=== PATIENT | male | born 1955 | race Caucasian/White ===

== ENCOUNTER 2017-05-05 09:46 | Inpatient (IN) ==
[2017-05-05] MEDS ORDERED: Acetaminophen IV 1,000 MG/100 ML INFUS..BTL IVPB ONE (10:04)
[2017-05-05] MEDS ORDERED: Famotidine 20 MG/2 ML VIAL IVP ONE (10:04)
[2017-05-05] MEDS ORDERED: Albuterol 2.5 MG/3 ML NEBULIZER IH ONE (10:14)
[2017-05-05] MEDS ORDERED: CeFAZolin Syr 2,000MG/20 ML 2,000 MG/20 ML SYRINGE IVPB ONE (10:14)
[2017-05-05] MEDS ORDERED: Ringers Solution, Lactated 1,000 ML IVC SCH (10:15)
--- NOTE | 2017-05-05 10:25 | Anesthesia Evaluation PreOp ---
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 Any Significant HX Other Medical History: Denies Any Significant HX Anesthesia History: No Prior Anesthetic Complications Alcohol Use: none, occasionally Drug use: none Medications and Allergies Aspirin Enteric Coated [Aspirin EC] 81 mg PO DAILY 03/11/17 [History] Bicalutamide [Casodex] 50 mg PO DAILY 03/11/17 [History] Gabapentin [Neurontin] 2 tab PO HS #60 capsule 03/11/17 [Rx] Leuprolide Acetate [Lupron Depot] 22.5 mg IM [id number] 03/11/17 [History] Tamsulosin HCl [Flomax] 0.4 mg PO DAILY 03/11/17 [History] Tramadol HCl [Ultram] 50 mg PO QID PRN 03/11/17 [History] 3 Allergy/AdvReac Type Severity Reaction Status Date / Time No Known Allergies Allergy Verified 04/01/17 13:16 - Meds/Allergy Pre-op Review Medications Reviewed: Yes Allergies Reviewed: Yes Beta Blockers on Current Med List: No Anesthesia Results - Labs Laboratory Tests 04/21/17 04/21/17 08:47 08:47 Hgb 14.6 Hct 45.4 Plt Count 230 Sodium 141 Potassium 4.3 BUN 14 Creatinine 1.24 - Imaging EKG: report reviewed (SR) Anesthesia Exam O2 Sat Height 1.83 m Height 1.83 m Height 1.83 m Weight 91.172 kg Weight 91.172 kg Weight 91.172 kg O2 Sat by Pulse Oximetry 94 Vital Signs Temp Pulse Resp BP Pulse Ox 97.6 F 72 18 122/87 94 05/05/17 10:08 05/05/17 10:08 05/05/17 10:08 05/05/17 10:08 05/05/17 10:08 Height: 6'0 Weight: 200 lbs NPO (# of Hours): MN Pain Scale: 0 - HEENT Pupil (Motor): Pupils equal, EOMI Mallampati: II Teeth: Normal Oral Opening: Greater than 3 - CONCRETE BATCHING PLANT OPERATOR LOC: Oriented CONCRETE BATCHING PLANT OPERATOR Motor: Normal RUE, Normal LUE, Normal RLE, Normal LLE, Normal Face [employer]CRETE BATCHING PLANT OPERATOR Sensory: Normal: RUE, LUE, RLE, LLE, Face - Cardiac Rhythm: Regular Murmur: None JVD: No Carotid Bruit: No - Pulmonary Breath Sounds: bilateral Clear Respiratory Effort: Symmetrical Anesthesia Assess/Plan ASA Score: 3 (PVD) Modified [place] Scale for Level of Consciousness: Cooperative, oriented, and tranquil Anesthetic Plan: General Monitoring Plan: Standard Monitors, A-Line Recovery Plan: PACU (Discussed [place], [place], agrees to proceed)
[2017-05-05] MEDS ORDERED: *HR* FentaNYL (PF) 100 MCG/2 ML VIAL ONE (10:31)
[2017-05-05] MEDS ORDERED: *HR* Midazolam HCl 2 MG/2 ML VIAL ONE (10:31)
[2017-05-05] MEDS ORDERED: Ondansetron 4 MG/2 ML VIAL ONE (10:31)
[2017-05-05] MEDS ORDERED: Lidocaine -MPF 2% 2 ML VIAL ONE ×3 (10:31→15:04)
[2017-05-05] MEDS ORDERED: Dexamethasone 4 MG/ML VIAL ONE (10:31)
[2017-05-05] MEDS ORDERED: Lidocaine -MPF 4% 5 ML AMPUL ONE (10:31)
[2017-05-05] MEDS ORDERED: *HR* Propofol 200 MG/20 ML VIAL IVP ONE (10:32)
[2017-05-05] MEDS ORDERED: Vancomycin 1,000 MG, Sodium Chloride IRRigation 1,000 ML IR ONE (11:20)
--- NOTE | 2017-05-05 11:40 | History & Physical Report ---
Date of Encounter: 05/05/17 Time of Encounter: 11:30 24 Hour HP Update - Instructions Instructions: If the History and Physical is less than 30 days old and was completed prior to A.M. admission and or procedure and has NOT been updated on calendar day of procedure please complete this update prior to performing procedure. - Update Patient reports changes in Medical Condition: No Changes in examination, assessment, or condition: No Changes in Medication: No Preop tests/diagnostics Reviewed: Yes Surgery Remains Indicated: Yes Consent for Planned Operative Procedure(s) Verified: Yes - Pre-Operative Checklist Preoperative Checklist Indicated: Yes Prophylactic Antibiotic Ordered: Yes (vancomycin due to MRSA risk) Home Medications Include Beta Pete: No Beta Pete Taken Today (Day of Surgery): No Beta Pete Taken Yesterday (Day Prior to Surgery): No Is VTE Prophylaxis Indicated?: Yes
[2017-05-05] MEDS ORDERED: Heparin 1,000 UNITS/500 mL 1,500 ML ONE (11:47)
[2017-05-05] MEDS ORDERED: Heparin 1,000 UNITS/500 mL 500 ML ONE (11:52)
[2017-05-05] MEDS ORDERED: *HR* Phenylephrine 10 MG/ML VIAL ONE (11:53)
[2017-05-05] MEDS ORDERED: EPHEDrine 50 MG/ML VIAL ONE (13:01)
[2017-05-05] MEDS ORDERED: *HR* Promethazine 25 MG/ML VIAL IVP PRN (13:47)
[2017-05-05] MEDS ORDERED: Ondansetron 4 MG/2 ML VIAL IVP ONE (13:47)
[2017-05-05] MEDS ORDERED: *HR* OxyCODONE Immed Rel 5 MG TABLET PO PRN (13:47)
[2017-05-05] MEDS ORDERED: *HR* FentaNYL (PF) 100 MCG/2 ML VIAL IVP PRN (13:47)
[2017-05-05] MEDS ORDERED: *HR* Labetalol 20 MG/4 ML SYRINGE IVP PRN ×2 (13:47→17:38)
--- NOTE | 2017-05-05 13:51 | Anesthesia Procedures ---
Date of Encounter: 05/05/17 Time of Encounter: 12:30 Procedures: Anesthesia - Arterial Line Consent obtained: written consent Time out performed: Yes Sedation: Versed (mg): 2 Sedation: Fentanyl (mcg): 100 Supplemental Oxygen via Nasal Cannula (L/min): 4 Local Anesthetic: Lidocaine 1% Amount of Anesthetic used (mls): 1 Size (Gauge): 20 Length (inches): 1 3/4 Technique Used: sterile prep, guide wire technique Post-Procedure: line taped into place Patient tolerated procedure: well Complications: none Site: Radial R
[2017-05-05] MEDS ORDERED: *HR* Heparin 5,000 UNIT/ML VIAL ONE (14:09)
--- NOTE | 2017-05-05 15:57 | Operative Note ---
Date of procedure: 05/05/17 Pre-op diagnosis: Right Femoral artery aneurysm, Peripheral vascular disease with rest pain. Post-op diagnosis: same Procedure: 1. Open repair of right common femoral artery aneurysm. 2. Right femoral to popliteal artery bypass with 6mm Distafflo minicuff PTFE graft. 3. Right popliteal artery endarterectomy. Complications: None Anesthesia: GETA Surgeon: Alonso Bowman Was there an orthodontic technician assistant present: Yes Osteopathic Medicine Teacher: Heladio Quintanilla Estimated blood loss (cc): 50 Specimen: Right lower extremity aneurysm, thrombus and plaque Condition: stable Disposition: PACU Procedure in Detail: Indications: The patient is a 62 year old male with a history of peripheral vascular disease and tobacco abuse. He presented with severe disabling claudication and was found to have severe peripheral vascular disease. Revascularization was recommended to decrease his symptoms and reduce his risk of limb loss. He was found to have a large, partially thrombosed right common femoral artery aneurysm. Resection was recommended to reduce risk of rupture or complete thrombosis with embolization. Procedure: The patient was identified in the preoperative area. The risks, benefits, and alternatives of the procedure were discussed. All questions were answered. The patient was taken to the operating room and placed in supine position on the operating room table. After the induction of general endotracheal anesthesia, he was cleaned and draped in normal sterile fashion. An oblique incision was made over the right groin sharply. Hemostasis was obtained with electrocautery. Through a process of blunt, sharp, and electrocautery dissection, the right femoral vessels identified. A large saccular common femoral artery aneurysm was encountered. There was no evidence of rupture. Careful dissection around the aneurysm was performed. Proximal control was obtained by placing a vessel loop around the distal external iliac artery. Distally the deep and superficial femoral arteries were dissected circumferentially and surrounded with vessel loops. An incision was then made on the right medial distal thigh sharply. Hemostasis was obtained with electrocautery. Through a process of blunt, sharp, and electrocautery dissection, the right above-knee popliteal artery was dissected proximally and distally and surrounded with vessel loops. A graft was tunneled between the popliteal and femoral incisions. The patient received 5000 units of heparin intravenously. The popliteal vessels were occluded and a longitudinal arteriotomy was made in the popliteal artery. The arteriotomy was extended with Pott's scissors. The vessel was noted to contain calcified and irregular partially occlusive plaque. Using a dental freer a below knee popliteal endarterctomy was performed. The endpoints were inspected and no elevated flaps were noted. The distal end of the graft was sutured in place with a running 6-0 Prolene, but not tied. Heparinized saline was infused into the lumen. Tension was applied to the external iliac and femoral vessel loops. An arteriotomy was made in the common femoral artery aneurysm. The arteriotomy was extended with Pott's scissors. Using a dental freer, thrombus and plaque were removed from the lumen and sent to pathology. The arterial wall was inspected and the aneurysmal portion of the common femoral artery was identified. The margins of the aneurysm were easily ideifiable. The aneurysm wall was resected sharply until grossly normal arterial wall was identified. The proximal end of the bypass graft was cut to fit the the long arterial wall defect. The graft was anastamosed with a running 6-0 Prolene. The vessels were flushed through the graft and heparin was infused into the lumen. The graft was clamped with an atraumatic clamp. Thrombis and gelfoam were used at the proximal anastamosis. The distal arterial anastomosis was completed and prior to completing the closure, the popliteal vessels were flushed and reoccluded. Heparinized saline was infused into the lumen. The anastamosis was tied and then flow was restored. Polyphasic signals were noted distal to the distal anastomosis as well as at the posterior tibial artery. Wounds were irrigated with antibiotic-containing saline. Thrombin and gelfoam were used to aid in hemostasis. Platelet rich and platelet poor plasma were infused into the wounds. Meticulous hemostasis was obtained throughout the wound with electrocautery. Wounds were reapproximated with layers of 2-0 and 3-0 Vicryl. Skin was reapproximated with 3-0 Monocryl. Sterile dressing was applied. The patient was extubated and taken to recovery room in stable condition.
[2017-05-05] MEDS: MORPHINE SUL Oral CONC 10 MG/0.5 ML ORAL.SYG SL PRN ×2 (16:13→16:23)
--- NOTE | 2017-05-05 16:24 | Operative Note ---
Date of procedure: 05/05/17 Pre-op diagnosis: PAD/claudication/right femoral aneurysm Post-op diagnosis: same Procedure: Open repair of right common femoral artery aneurysm with direct resection Right femoral to above-knee popliteal artery bypass graft using 6 mm PTFE Distaflo Right above the knee and at the knee popliteal artery endarterectomy Complications: None Anesthesia: PHILOMENA Surgeon: Alonso Bowman Co-Surgeon: Heladio Quintanilla Was there an special education educational assistant present: No Estimated blood loss (cc): 50 Specimen: Right common femoral artery aneurysm and right popliteal artery endarterect Condition: stable Disposition: PACU Procedure in Detail: History Girma Ryder is a 62-year-old white male with known severe bilateral lower extremity occlusive disease. The patient has claudication. In addition the patient was identified as having a right common femoral artery aneurysm. Angiographically the aneurysm appears to be saccular. The patient now comes for surgery for the right lower extremity. The patient has significant occlusive disease on the left lower extremity as well. Procedure After informed consent was obtained the patient was taken to the operating room. General endotracheal anesthesia was established. The right lower extremity was sterilely prepped and draped. A timeout protocol was observed. A 2 team surgical approach was utilized for this procedure. This was performed because of ongoing significant comorbidities and also to decrease anesthetic time and decrease blood loss. Dissection was made of the common femoral artery and the [id number] popliteal artery simultaneously. The aneurysm was identified in the common femoral artery as depicted on the angiogram. Dissection was made of this vessel with extensive control both proximally and distally. At the popliteal artery the vessel in the standard [id number] location demonstrated significant plaque. Therefore the dissection was carried more distally such that the anastomosis with X Ronnie performed behind the patella. A subsartorial tunnel was created. A 6 mm PTFE graft was selected and this was passed through the tunnel. Heparin was then administered a dose of 5000 units intravenously. The popliteal artery was opened first at the [id number] with extension into the abdomen knee popliteal artery. Significant atherosclerotic plaque and chronic thrombus was identified. Because of this a formal endarterectomy was necessary. This was performed with the [place] elevator. Dissection was made of the vessel circumferentially so that the plaque could be removed. Then distally the plaque was dissected. Tonsil clamp was then inserted and the plaque was grasped and removed. Excellent backbleeding was achieved. This area was then flushed with heparinized saline. At the same time the common femoral artery was opened. The common femoral artery was then resected. There is a significant amount of intra luminal thrombus present. The anastomosis was initiated at the popliteal level first using the Distaflo graft in an end-to-side configuration. 6-0 Prolene suture was used for this anastomosis. Then the anastomosis was created at the femoral location. A long anastomosis was made so that it could accommodate the area of the resection of the femoral aneurysm with the back wall of the artery preserved. A long patch type anastomosis was then created. After appropriate backbleeding and flushing the graft was opened. Pulsatile flow was restored into the popliteal artery. Doppler signal was identified at the posterior tibial and peroneal artery at the level of the ankle. The wounds were then irrigated with antibiotic-containing solution. Hemostasis was achieved. The wounds were then closed in layers using absorbable suture. Dry sterile dressings were applied to the incisions. The patient was extubated in the operating room and taken to the recovery room in stable condition.
--- NOTE | 2017-05-05 17:00 | Anesthesia Evaluation Post Op ---
Date of Encounter: 05/05/17 Time of Encounter: 16:59 - Vital Signs Vital Signs: Last Vital Signs Temp 97.2 F L 05/05/17 16:35 Pulse 77 05/05/17 16:35 Resp 16 05/05/17 16:35 BP 123/79 05/05/17 16:35 Pulse Ox 98 05/05/17 16:35 - Lungs Lungs: Clear Ascult./Percussion - Airway Airway: Non-obstructed - Cardiovascular Regular Rate - Mental Status Mental Status: Alert & Oriented, Answers Appropriately - Pain Pain Scale: 3 - Nausea Vomiting Nausea Vomiting: Not Present - Hydration Hydration: NPO - Discharge PostOp Status: Transfer Patient to floor
[2017-05-05] MEDS: Ketorolac 15 MG/ML VIAL IVP SCH (17:20)
[2017-05-05] MEDS ORDERED: Ondansetron 4 MG/2 ML VIAL IVP PRN (17:38)
[2017-05-05] MEDS ORDERED: LEUPROLIDE ACETATE 22.5 MG IM SCH (17:38)
[2017-05-05] MEDS ORDERED: *HR* HYDROcodone/Acet 5/325 mg TABLET PO PRN (17:38)
[2017-05-05] MEDS ORDERED: Acetaminophen 325 MG TABLET PO PRN (17:38)
[2017-05-05] MEDS ORDERED: OXYCODONE Oral CONC 10 MG/0.5 ML ORAL.SYG SL PRN ×2 (17:38)
[2017-05-05] MEDS ORDERED: 0.9 % Sodium Chloride 1,000 ML IVC SCH (17:38)
[2017-05-05] MEDS ORDERED: Naloxone 0.4 MG/ML INJ IVP PRN (17:38)
[2017-05-05] MEDS ORDERED: Gabapentin 300 MG CAPSULE PO SCH (21:00)
[2017-05-05] MEDS: CeFAZolin Premix DUPLEX 2,000 MG/50 ML BAG IVPB SCH (21:16)
[2017-05-05] MEDS: *HR* OxyCODONE Immed Rel 5 MG TABLET PO PRN (21:17)
[2017-05-05] MEDS ORDERED: Vancomycin 0 MG in D5% in Water 250 ML IVPB ONE (23:30)
[2017-05-06] MEDS: *HR* Metoprolol 5 MG/5 ML VIAL IVP SCH ×3 (01:22→06:02)
[2017-05-06] MEDS: Ketorolac 15 MG/ML VIAL IVP SCH ×2 (01:23→06:03)
[2017-05-06] MEDS: CeFAZolin Premix DUPLEX 2,000 MG/50 ML BAG IVPB SCH (04:24)
[2017-05-06] MEDS: *HR* OxyCODONE Immed Rel 5 MG TABLET PO PRN (04:24)
[2017-05-06 04:45] LABS: Basophils % 0.1 %; Hemoglobin 12.5 g/dL (12.9-16.9); Immature Granulocytes % 0.5 % (0-4); Lymphocytes # 1.1 K/mcL (0.6-4.6); Lymphocytes % 7.5 %; Mean Corpuscular HGB Conc 32.9 g/dL (31.6-35.5); Mean Corpuscular Hemoglobin 31.8 pg (28.0-33.3); Mean Corpuscular Volume 96.7 fL (83.0-100.0); Mean Platelet Volume 9.8 fL (9.4-12.4); Monocytes # 0.6 K/mcL (0.0-1.3); Neutrophils # 13.3 K/mcL (1.6-8.9); Platelet Count 220 K/mcL (140-400); Red Blood Count 3.93 M/mcL (4.19-5.50); Red Cell Distribution Width 12.2 % (11.5-14.5); Segmented Neutrophils % 87.9 %
[2017-05-06 05:07] LABS: BUN/Creatinine Ratio 13 (6-26); Blood Urea Nitrogen 15 mg/dL (8-23); Calcium 9.3 mg/dL (8.6-10.3); Carbon Dioxide 23 mEq/L (23-29); Chloride 104 mEq/L (98-107); Glucose 136 mg/dL (70-105); Osmolality,Calculated 277 (280-300); Potassium 4.5 mEq/L (3.5-5.1); Sodium 132 mEq/L (136-145); eGFR For African Americans > 60 (> 60); eGFR For Non-African Americans > 60 (> 60)
[2017-05-06] MEDS ORDERED: *HR* Heparin 5,000 UNIT/ML VIAL SQ SCH ×2 (06:00)
--- NOTE | 2017-05-06 06:53 | Discharge Summary ---
Orders not resulted at time of discharge: Pending orders 05/04/17 08:35 Red Blood Cells [BBK] Routine 05/05/17 15:44 Surgical Pathology [PTH] Routine Date of Encounter: 05/06/17 Time of Encounter: 07:35 - Discharge Diagnosis (1) Atherosclerosis of [place] arteries of extremities with intermittent claudication, bilateral legs Priority: Primary Status: Chronic Comments: The patient has undergone a right femoral to popliteal artery bypass. He is healing well. He reports that his right lower extremity feels much better. (2) Femoral artery aneurysm, right Priority: Secondary Status: Chronic Comments: The patient has undergone a right common femoral artery aneurysm repair. (3) Acute blood loss anemia Priority: Secondary Status: Acute Comments: The patient has acute expected postoperative blood loss anemia. (4) Tobacco abuse Priority: Secondary Status: Chronic - Hospital Course Hospital course: Mr. Ryder is a 62 year old male who was admitted on 05/05/17. He underwent a repair of his right common femoral artery aneurysm. He also underwent a right femoral to popliteal artery bypass. He tolerated the procedures well and was discharged on postoperative day #1 without complications. Time spent discussing smoking cessation with patient: 3 to 10 minutes - Time Spent with Patient Total time spent providing and/or coordinating discharge services: - Discharge Medications Prescriptions: OxyCODONE/APAP 5/325 [Percocet 5/325 MG] 1 each PO Q6HR PRN 7 Days #24 tablet PRN Reason: postoperative pain Home Medications: Aspirin Enteric Coated [Aspirin EC] 81 mg PO DAILY 03/11/17 [History] Bicalutamide [Casodex] 50 mg PO DAILY 03/11/17 [History] Gabapentin [Neurontin] 2 tab PO HS #60 capsule 03/11/17 [Rx] Leuprolide Acetate [Lupron Depot] 22.5 mg IM [id number] 03/11/17 [History] Tamsulosin HCl [Flomax] 0.4 mg PO DAILY 03/11/17 [History] Tramadol HCl [Ultram] 50 mg PO QID PRN 03/11/17 [History] OxyCODONE/APAP 5/325 [Percocet 5/325 MG] 1 each PO Q6HR PRN 7 Days #24 tablet [Rx] Allergies/Adverse Reactions: 3 Allergy/AdvReac Type Severity Reaction Status Date / Time No Known Allergies Allergy Verified 04/01/17 13:16 Date of admission: 05/05/17 16:57 Primary care physician: June Brown, Procedure(s) Performed: 1. Repair of right common femoral artery aneurysm. 2. Right femoral to above knee popliteal artery bypass with 6mm Distaflo PTFE mini-cuff graft. Discharging clinician: Alonso Magallon Anticipated date of discharge: 05/06/17 Exam Vital Signs, Last 4 Hours Temp Pulse Resp BP Pulse Ox 05/06/17 03:32 98.0 F 79 16 101/63 97 General: Present: No Apparent Distress Cardiac: Present: Reg Rate and Rhythm Lungs: Present: Normal Breath Sounds Neuro: Present: Alert and responsive, No focal deficits noted, Motor nerves grossly intact, Sensory nerves grossly intact Abdomen: Present: Soft Vascular: Present: Normal capillary refill, Pulse, diminished (left lower extremity), Pulse, normal (right lower extremity), Surgical incisions (no hematoma, incisions clean, dry and intact without erythema or draiange). Absent : Cyanosis, Edema Skin: Present: No rashes noted on visualized skin - Patient Status Disposition: Home, Self-Care Condition: Good Functional capacity at discharge: independent ambulation Overall status at discharge: patient is back to baseline - Discharge Instructions Instructions: Peripheral Vascular Disorders (DC) Follow Up With: Alonso Magallon MD [Partnered Physician] - 05/24/17 3:40 pm June Brown MD [Primary Care Provider] - 05/17/17 11:00 am Additional Instructions: MAY REMOVE BANDAGES AND SHOWER ON 05/07/17. NO TUB BATHS OR SWIMMING UNTIL 05/31/17. WASH WOUNDS GENTLY AND PAT TO DRY. APPLY DRY GAUZE TO GROIN WOUND DAILY FOR [address] MAGALLON AT [phone] WITH QUESTIONS OR CONCERNS. - Diet and Activity Activity: increase activity as tolerated Diet: advance to your usual diet - VTE Documentation of Mechanical Device: Intermittent pneumatic compression device
[2017-05-06 07:51] VITALS: BP 113/86
[2017-05-06] MEDS ORDERED: Aspirin Enteric Coated 81 MG Tablet PO SCH (09:00)
[2017-05-06] MEDS ORDERED: Bicalutamide 50 MG TABLET PO SCH (09:00)
== END 2017-05-06 09:45 | disposition home or self-care (01) | DRG 253 ==
LOC: SAMDAY 09:46 → 2NNU 16:57
PROVIDERS: ADMIT Surgery; ATTEND Surgery

== ENCOUNTER 2017-07-28 09:17 | Inpatient (IN) ==
[~2017-07-28 09:17] MED LIST: Vancomycin 1,000 MG, Sodium Chloride IRRigation 1,000 ML IR ONE
[2017-07-28] MEDS ORDERED: CeFAZolin Syr 2,000MG/20 ML 2,000 MG/20 ML SYRINGE IVPB ONE (09:39)
[2017-07-28] MEDS ORDERED: Albuterol 2.5 MG/3 ML NEBULIZER IH ONE (09:39)
[2017-07-28] MEDS ORDERED: Ringers Solution, Lactated 1,000 ML IVC SCH (09:45)
--- NOTE | 2017-07-28 11:15 | Anesthesia Evaluation PreOp ---
Date of Encounter: 07/28/17 Time of Encounter: 11:13 - Past History Planned Operation: Left femoral endarterectomy Cardiac History: HTN, Hyperlipidemia, Other (ascending thoracic aneurysm - being followed, peripheral vascular disease) Pulmonary History: Smoker, EDITH Dx (cannot tolerate CPAP) COMMERCIAL AGENT History: Other (hx back surgery) Other Medical History: Other (stage 4 prostate cancer undergoing treatment now ( Per oncologist: He had excellent response to Lupron 22.5 mg IM injection every 12 weeks. Today he will get a dose today on 07/01/2017 Also bicalutamide 50 mg by mouth once a day)) Anesthesia History: No Prior Anesthetic Complications Alcohol Use: none, occasionally Drug use: none Medications and Allergies Aspirin Enteric Coated [Aspirin EC] 81 mg PO DAILY 03/11/17 [History] Leuprolide Acetate [Lupron Depot] 22.5 mg IM [id number] 03/11/17 [History] Tramadol HCl [Ultram] 50 mg PO QID PRN 03/11/17 [History] Bicalutamide [Casodex] 50 mg PO HS 07/28/17 [History] Gabapentin [Neurontin] 300 mg PO HS 07/28/17 [History] Tamsulosin HCl [Flomax] 0.4 mg PO HS 07/28/17 [History] 3 Allergy/AdvReac Type Severity Reaction Status Date / Time No Known Allergies Allergy Verified 07/28/17 09:38 - Meds/Allergy Pre-op Review Medications Reviewed: Yes Allergies Reviewed: Yes Beta Blockers on Current Med List: No Anesthesia Results - Labs Laboratory Tests 06/27/17 06/27/17 06/27/17 07:30 07:30 09:16 WBC 8.1 Hgb 14.3 Hct 43.6 Plt Count 245 Sodium 137 Potassium 4.7 Chloride 102 Carbon Dioxide 27 BUN 12 Creatinine 1.14 POC Creatinine 1.20 POC Estimated GFR (eGFR) > 60 Est GFR ( Amer) > 60 Est GFR (Non-Af Amer) > 60 BUN/Creatinine Ratio 11 Glucose 80 Calculated Osmolality 283 Calcium 9.7 - Imaging EKG: report reviewed, image reviewed (SINUS RHYTHM) Anesthesia Exam Last Vital Signs Temp 97.8 F 07/28/17 10:14 Pulse 66 07/28/17 10:14 Resp 18 07/28/17 10:14 BP 127/90 07/28/17 10:14 Pulse Ox 98 07/28/17 10:14 Weight: 89 kg NPO (# of Hours): > 8 hrs - HEENT Pupil (Motor): Pupils equal, EOMI Mallampati: III Teeth: Edentulous Denture Type: Upper: Complete, Lower: Complete Oral Opening: Greater than 3 - COMMERCIAL AGENT LOC: Oriented - Cardiac Rhythm: Regular Murmur: None - Pulmonary Breath Sounds: bilateral Clear Respiratory Effort: Symmetrical Anesthesia Assess/Plan ASA Score: 3 (Active cancer (stage 4 prostate cancer), PVD, EDITH, smoking) Modified [place] Scale for Level of Consciousness: Cooperative, oriented, and tranquil Anesthetic Plan: General Monitoring Plan: Standard Monitors, A-Line (+/-) Recovery Plan: PACU
[2017-07-28] MEDS ORDERED: Heparin 1,000 UNITS/500 mL 1,000 ML ONE (11:20)
--- NOTE | 2017-07-28 11:23 | History & Physical Report ---
Date of Encounter: 07/28/17 Time of Encounter: 11:00 24 Hour HP Update - Instructions Instructions: If the History and Physical is less than 30 days old and was completed prior to A.M. admission and or procedure and has NOT been updated on calendar day of procedure please complete this update prior to performing procedure. - Update Patient reports changes in Medical Condition: No Changes in examination, assessment, or condition: No Changes in Medication: No Preop tests/diagnostics Reviewed: Yes Surgery Remains Indicated: Yes Consent for Planned Operative Procedure(s) Verified: Yes - Pre-Operative Checklist Preoperative Checklist Indicated: Yes Prophylactic Antibiotic Ordered: Yes (Vancomycin due to MRSA risk) Home Medications Include Beta Pete: No Beta Pete Taken Today (Day of Surgery): No Beta Pete Taken Yesterday (Day Prior to Surgery): No Is VTE Prophylaxis Indicated?: Yes
[2017-07-28] MEDS ORDERED: *HR* FentaNYL (PF) 100 MCG/2 ML VIAL ONE ×2 (11:33→13:27)
[2017-07-28] MEDS ORDERED: *HR* Propofol 200 MG/20 ML VIAL IVP ONE (11:33)
[2017-07-28] MEDS ORDERED: *HR* Heparin 5,000 UNIT/ML VIAL ONE (11:34)
[2017-07-28] MEDS ORDERED: *HR* Rocuronium Bromide 50 MG/5 ML VIAL ONE (11:35)
[2017-07-28] MEDS ORDERED: Lidocaine -MPF 2% 2 ML VIAL ONE (11:35)
[2017-07-28] MEDS ORDERED: Dexamethasone 4 MG/ML VIAL ONE (11:36)
[2017-07-28] MEDS ORDERED: Ondansetron 4 MG/2 ML VIAL ONE (13:34)
[2017-07-28] MEDS ORDERED: Bupivacaine-MPF 0.25% 10 ML VIAL ONE (13:57)
--- NOTE | 2017-07-28 14:39 | Operative Note ---
Date of procedure: 07/28/17 Pre-op diagnosis: Peripheral vascular disease Post-op diagnosis: same Procedure: 1. Left iliofemoral endarterectomy with bovine pericardial patch angioplasty. 2. Left deep femoral endarterectomy Complications: None Anesthesia: GETA Surgeon: Alonso Bowman Was there an phys assistant present: No Estimated blood loss (cc): 50 Specimen: Left lower extremity thrombus and plaque Condition: stable Disposition: PACU Procedure in Detail: Indications: The patient is a 62-year-old male with a long-standing history of peripheral vascular disease with disabling claudication. Patient underwent angiography which revealed significant left distal iliac common femoral and deep femoral artery stenosis. The patient was also noted to have a left superficial femoral, popliteal and tibial peroneal trunk occlusion. Revascularization was recommended for symptomatic relief. Procedure: The patient was identified in the preoperative area. The risks, benefits, and alternatives of procedure were discussed and all questions were answered. He was taken to the operating room and placed in supine position on the operating room table. After the induction of general endotracheal anesthesia, he was cleaned and draped in normal sterile fashion. An oblique incision was made along the left groin sharply. Hemostasis was obtained with electrocautery. Through a process of blunt and sharp electrocautery dissection , the skin and subcutaneous tissues were incised and the distal external iliac artery was dissected underneath the inguinal ligament and a vessel loop was passed around it. The common femoral artery, deep femoral artery and superficial femoral artery were dissected circumferentially and surrounded with vessel loops. The vessels were noted to be firm and heaviliy calcified. The patient received 5000 units of heparin intravenously. After waiting adequate time for the heparin to circulate, vessels were occluded. A longitudinal arteriotomy was made sharply into the common femoral artery. The arteriotomy was extended proximally and distally. Using a dental freer, an endarterectomy was performed from the distal external iliac artery through the common femoral artery. The plaque was irregular, heavily calcified and had significant coexisting chronic thrombus. Proximally, the lumen became patent without significant stenosis. The plaque was excised sharply and no elevated flaps were noted at the endpoint. Significant residual stenosis was noted extending from the origin of the deep femoral artery into his first branch. Upon release of the vessel loop no significant retrograde flow was noted. Using a dental freer, the plaque was circumferentially excised from the deep femoral artery using an eversion technique. Release of the loop revealed significant retrograde flow. The loop was tightened. The lumen was irrigated with heparinzed saline. A bovine pericardial patch was cut to fit the arteriotomy defect. The patch was sutured in place with running 6-0 Prolene. Prior to completing the patch anastomosis, each vessel was flushed individually, then reoccluded. Heparinized saline was infused into the lumen. The patch was completed and flow was restored. Thrombin and Gelfoam were used to aid in hemostasis. Polyphasic signal was noted distal to the distal end of the patch as well as the posterior tibial artery. Wound was irrigated with antibiotic-containing saline. Platelet-rich and platelet-poor plasma were infused into the wound. The wounds were reapproximated with layer of 2-0 Vicryl followed by two layers of 3-0 and Vicryl 3-0 Monocryl in the subcuticular layer. Sterile dressings were applied. The patient was extubated and taken to recovery room in stable condition.
--- NOTE | 2017-07-28 14:46 | Anesthesia Evaluation Post Op ---
Date of Encounter: 07/28/17 Time of Encounter: 14:45 - Vital Signs Vital Signs: Last Vital Signs Temp 97.9 F 07/28/17 14:45 Pulse 63 07/28/17 14:45 Resp 16 07/28/17 14:45 BP 128/90 07/28/17 14:45 Pulse Ox 99 07/28/17 14:45 - Lungs Lungs: Clear Ascult./Percussion - Airway Airway: Non-obstructed - Cardiovascular Regular Rate - Mental Status Mental Status: Alert & Oriented, Answers Appropriately - Pain Pain Scale: 2 - Nausea Vomiting Nausea Vomiting: Not Present - Hydration Hydration: Ice chips - Discharge PostOp Status: Transfer Patient to floor
[2017-07-28] MEDS ORDERED: *HR* Labetalol 20 MG/4 ML SYRINGE IVP PRN (15:17)
[2017-07-28] MEDS ORDERED: *HR* HYDROcodone/Acet 5/325 mg TABLET PO PRN (15:17)
[2017-07-28] MEDS ORDERED: Naloxone 0.4 MG/ML INJ IVP PRN (15:17)
[2017-07-28] MEDS ORDERED: Ondansetron 4 MG/2 ML VIAL IVP PRN (15:17)
[2017-07-28] MEDS ORDERED: Acetaminophen 325 MG TABLET PO PRN (15:17)
[2017-07-28] MEDS ORDERED: *HR* OxyCODONE Immed Rel 5 MG TABLET PO PRN (15:17)
[2017-07-28] MEDS: *HR* Metoprolol 5 MG/5 ML VIAL IVP SCH (17:36)
[2017-07-28] MEDS: ceFAZolin 2,000 MG in 0.9 % Sodium Chloride 100 ML IVPB SCH (20:02)
[2017-07-28] MEDS ORDERED: Bicalutamide 50 MG TABLET PO SCH (21:00)
[2017-07-28] MEDS ORDERED: Gabapentin 300 MG CAPSULE PO SCH (21:00)
[2017-07-29] MEDS: *HR* Metoprolol 5 MG/5 ML VIAL IVP SCH ×2 (02:49→04:49)
[2017-07-29] MEDS: ceFAZolin 2,000 MG in 0.9 % Sodium Chloride 100 ML IVPB SCH (03:45)
[2017-07-29] MEDS ORDERED: *HR* Heparin 5,000 UNIT/ML VIAL SQ SCH (06:00)
[2017-07-29 06:42] LABS: Basophils % 0.1 %; Hematocrit 39.5 % (37.5-50.1); Hemoglobin 12.8 g/dL (12.9-16.9); Immature Granulocytes % 0.6 % (0-4); Lymphocytes # 0.9 K/mcL (0.6-4.6); Lymphocytes % 5.4 %; Mean Corpuscular HGB Conc 32.4 g/dL (31.6-35.5); Mean Corpuscular Hemoglobin 31.8 pg (28.0-33.3); Mean Platelet Volume 10.1 fL (9.4-12.4); Monocytes # 0.7 K/mcL (0.0-1.3); Neutrophils # 15.6 K/mcL (1.6-8.9); Platelet Count 185 K/mcL (140-400); Red Blood Count 4.03 M/mcL (4.19-5.50); Segmented Neutrophils % 89.9 %
[2017-07-29 06:54] LABS: BUN/Creatinine Ratio 13 (6-26); Blood Urea Nitrogen 15 mg/dL (8-23); Carbon Dioxide 25 mEq/L (23-29); Chloride 106 mEq/L (98-107); Glucose 134 mg/dL (70-105); Osmolality,Calculated 285 (280-300); Potassium 4.4 mEq/L (3.5-5.1); Sodium 136 mEq/L (136-145); eGFR For African Americans > 60 (> 60); eGFR For Non-African Americans > 60 (> 60)
--- NOTE | 2017-07-29 07:11 | Discharge Summary ---
Orders not resulted at time of discharge: Pending orders 07/27/17 08:36 Red Blood Cells [BBK] Routine 07/28/17 14:17 Surgical Pathology [PTH] Routine Date of Encounter: 07/29/17 Time of Encounter: 07:45 - Discharge Diagnosis (1) Atherosclerosis of [place] arteries of extremities with intermittent claudication, bilateral legs Status: Chronic (2) Tobacco abuse Status: Chronic (3) Prostate cancer Status: Acute - Hospital Course Hospital course: Mr. Ryder is a 62 year old male - Time Spent with Patient Total time spent providing and/or coordinating discharge services: - Discharge Medications Prescriptions: OxyCODONE/APAP 5/325 [Percocet 5/325 MG] 1 each PO Q6HR PRN 5 Days #20 tablet PRN Reason: Postoperative pain Home Medications: Aspirin Enteric Coated [Aspirin EC] 81 mg PO DAILY 03/11/17 [History] Leuprolide Acetate [Lupron Depot] 22.5 mg IM [id number] 03/11/17 [History] Tramadol HCl [Ultram] 50 mg PO QID PRN 03/11/17 [History] Bicalutamide [Casodex] 50 mg PO HS 07/28/17 [History] Gabapentin [Neurontin] 300 mg PO HS 07/28/17 [History] Tamsulosin HCl [Flomax] 0.4 mg PO HS 07/28/17 [History] OxyCODONE/APAP 5/325 [Percocet 5/325 MG] 1 each PO Q6HR PRN 5 Days #20 tablet [Rx] Allergies/Adverse Reactions: 3 Allergy/AdvReac Type Severity Reaction Status Date / Time No Known Allergies Allergy Verified 07/28/17 09:38 Date of admission: 07/28/17 14:56 Primary care physician: June Brown, Exam Vital Signs, Last 4 Hours Temp Pulse Resp BP Pulse Ox 07/29/17 04:08 98.8 F 64 16 125/82 92 - Patient Status Disposition: Home, Self-Care Condition: Good Functional capacity at discharge: independent ambulation Overall status at discharge: patient is back to baseline - Discharge Instructions Follow Up With: Alonso Bowman MD [Partnered Physician] - 09/06/17 2:30 pm June Brown MD [Primary Care Provider] - 08/04/17 9:45 am Additional Instructions: May remove bandage and shower on 07/30/2017. Wash wounds gently and pat to dry. Applied dry gauze to wound daily for 7 days. No tub baths or swimming until 08/23/2017. Call Dr. Bowman at [phone] with questions or concerns. - Diet and Activity Activity: increase activity as tolerated Diet: advance to your usual diet - VTE Documentation of Mechanical Device: Intermittent pneumatic compression device
[2017-07-29 07:45] VITALS: BP 130/83
[2017-07-29] MEDS ORDERED: Aspirin Enteric Coated 81 MG Tablet PO SCH (09:00)
[2017-10-01] MEDS ORDERED: LEUPROLIDE ACETATE 22.5 MG IM SCH (09:00)
== END 2017-07-29 09:33 | disposition home or self-care (01) | DRG 271 ==
LOC: SAMDAY 09:17 → 2NNU 14:56
PROVIDERS: ADMIT Surgery; ATTEND Surgery

== ENCOUNTER 2018-09-28 06:07 | Inpatient (IN) ==
[2018-09-28] MEDS ORDERED: CeFAZolin Syr 2,000MG/20 ML 2,000 MG/20 ML SYRINGE IVPB ONE (06:26)
[2018-09-28] MEDS ORDERED: Albuterol 2.5 MG/3 ML NEBULIZER IH ONE (06:28)
[2018-09-28] MEDS ORDERED: Ringers Solution, Lactated 1,000 ML IVC SCH (06:30)
[2018-09-28] MEDS ORDERED: Lidocaine -MPF 4% 5 ML AMPUL ONE (07:03)
[2018-09-28] MEDS ORDERED: Ondansetron 4 MG/2 ML VIAL ONE (07:03)
[2018-09-28] MEDS ORDERED: Lidocaine -MPF 2% 2 ML VIAL ONE ×2 (07:03→08:16)
[2018-09-28] MEDS ORDERED: *HR* Succinylcholine 200 MG/10 ML VIAL IVP ONE (07:03)
[2018-09-28] MEDS ORDERED: Dexamethasone 4 MG/ML VIAL ONE (07:03)
[2018-09-28] MEDS ORDERED: *HR* Propofol 200 MG/20 ML VIAL IVP ONE (07:04)
[2018-09-28] MEDS ORDERED: *HR* Midazolam HCl 2 MG/2 ML VIAL ONE (07:04)
[2018-09-28] MEDS ORDERED: *HR* Phenylephrine 10 MG/ML VIAL ONE (07:04)
[2018-09-28] MEDS ORDERED: *HR* FentaNYL (PF) 100 MCG/2 ML VIAL ONE (07:04)
[2018-09-28] MEDS ORDERED: Lidocaine -MPF 1% 2 ML AMPUL ONE (07:20)
--- NOTE | 2018-09-28 07:28 | Anesthesia Evaluation PreOp ---
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 HX Other Medical History: Hepatic (HEP C, POST INTERFERON TX) Anesthesia History: No Prior Anesthetic Complications, Past Anesthesia Alcohol Use: occasionally Drug use: none Medications and Allergies Aspirin Enteric Coated [Aspirin EC] 2 tab PO DAILY 03/11/17 [History] Leuprolide Acetate [Lupron Depot] 22.5 mg IM [id number] 03/11/17 [History] Tramadol HCl [Ultram] 50 mg PO QID PRN 03/11/17 [History] Atorvastatin [Lipitor] 80 mg PO HS 09/23/17 [History] Levothyroxine Sodium [Levoxyl] 75 mcg PO DAILY 05/04/18 [History] Tamsulosin HCl [Flomax] 0.4 mg PO HS #30 cap.er.24h 07/03/18 [Rx] Bicalutamide [Casodex] 200 mg PO HS 09/28/18 [History] Cyclobenzaprine [Flexeril] 10 mg PO DAILY 09/28/18 [History] Allergy/AdvReac Type Severity Reaction Status Date / Time oxycodone AdvReac Shakiness Verified 09/28/18 06:29 - Meds/Allergy Pre-op Review Medications Reviewed: Yes Allergies Reviewed: Yes Beta Blockers on Current Med List: No Anesthesia Results - Labs REVIEWED, WNL Anesthesia Exam REVIEWED Weight: 86 KG - BMI 26 NPO (# of Hours): 8 - HEENT Mallampati: I Teeth: Edentulous Denture Type: Upper: Complete, Lower: Complete - Cardiac Rhythm: Regular - Pulmonary Breath Sounds: bilateral Clear Anesthesia Assess/Plan ASA Score: 3 Anesthetic Plan: General Monitoring Plan: Standard Monitors Recovery Plan: PACU
[2018-09-28] MEDS ORDERED: Heparin 1,000 UNITS/500 mL 1,500 ML ONE (07:30)
[2018-09-28] MEDS ORDERED: Ipratropium/Albuterol Neb 3 ML IH PRN (07:32)
[2018-09-28] MEDS ORDERED: *HR* Promethazine 25 MG/ML VIAL IVP PRN ×2 (07:33→14:55)
[2018-09-28] MEDS ORDERED: *HR* Labetalol 20 MG/4 ML SYRINGE IVP PRN ×2 (07:33→14:55)
[2018-09-28] MEDS ORDERED: Acetaminophen IV 1,000 MG/100 ML INFUS..BTL IVPB ONE (07:33)
[2018-09-28] MEDS ORDERED: Ondansetron 4 MG/2 ML VIAL IVP ONE (07:33)
[2018-09-28] MEDS ORDERED: Morphine Sulfate Oral CONC 10 MG/0.5 ML ORAL.SYG SL PRN (07:33)
[2018-09-28] MEDS ORDERED: Ketorolac 30 MG/ML VIAL IVP ONE (07:33)
[2018-09-28] MEDS ORDERED: *HR* FentaNYL (PF) 100 MCG/2 ML VIAL IVP PRN (07:33)
--- NOTE | 2018-09-28 07:33 | History & Physical Report ---
Date of Encounter: 09/28/18 Time of Encounter: 07:28 24 Hour HP Update - Instructions Instructions: If the History and Physical is less than 30 days old and was completed prior to A.M. admission and or procedure and has NOT been updated on calendar day of procedure please complete this update prior to performing procedure. - Update Patient reports changes in Medical Condition: No Changes in examination, assessment, or condition: No Changes in Medication: No Preop tests/diagnostics Reviewed: Yes Surgery Remains Indicated: Yes Consent for Planned Operative Procedure(s) Verified: Yes - Pre-Operative Checklist Preoperative Checklist Indicated: No Prophylactic Antibiotic Ordered: Yes (vancomycin due to MRSA risk) Home Medications Include Beta Pete: No Beta Pete Taken Today (Day of Surgery): No Beta Pete Taken Yesterday (Day Prior to Surgery): No Is VTE Prophylaxis Indicated?: Yes
[2018-09-28] MEDS ORDERED: Vancomycin 1,000 MG, Sodium Chloride IRRigation 1,000 ML IR ONE (07:45)
[2018-09-28] MEDS ORDERED: Calcium Gluconate 1,000 MG/10 ML VIAL ONE (08:01)
[2018-09-28] MEDS ORDERED: EPHEDrine 50 MG/ML VIAL ONE (08:32)
[2018-09-28] MEDS ORDERED: *HR* HYDROMORPHONE 2 MG/ML VIAL ONE (08:53)
[2018-09-28] MEDS ORDERED: *HR* Heparin 5,000 UNIT/ML VIAL ONE ×2 (09:56→10:58)
--- NOTE | 2018-09-28 14:16 | Operative Note ---
Date of procedure: 09/28/18 Pre-op diagnosis: Peripheral vascular disease with disabling claudication Post-op diagnosis: same Procedure: 1. Right common femoral to right tibioperoneal trunk artery bypass graft with reversed greater saphenous vein. 2. Right popliteal and anterior tibial artery and tibioperoneal trunk artery thrombectomy with 4-[place] Christiano embolectomy catheter. Complications: None Anesthesia: GETA Surgeon: Alonso Bowman Was there an urology physician assistant present: No Estimated blood loss (cc): 100 Specimen: No Condition: stable Disposition: PACU Procedure in Detail: Indications: The patient is a 63-year-old male with a history of peripheral vascular disease with disabling claudication, and tobacco abuse. The patient previously underwent a right femoral to above-knee popliteal artery bypass graft. The patient has recently developed a graft occlusion underwent thrombectomy. His recent imaging study revealed disease distal to the bypass graft. A right femoral to below-knee popliteal artery bypass graft was recommended to alleviate his symptoms. Procedure: The patient was identified in the preoperative area. The risks, benefits, and alternatives of the procedure were discussed. All questions were answered. The patient was taken to the operating room and placed in supine position on the operating room table. After the induction of general endotracheal anesthesia, he was cleaned and draped in normal sterile fashion. An oblique incision was made over the scar in his right groin sharply. Hemostasis was obtained with electrocautery. Through a process of blunt, sharp, and electrocautery dissection, the right femoral arteries and proximal anastomosis of the bypass graft were dissected circumferentially and surrounded with vessel loops. An incision was made on the right medial calf sharply. Hemostasis was obtained with electrocautery. Through a process of blunt, sharp, and electrocautery dissection, the right below-knee popliteal artery, anterior tibial artery and posterior tibial artery were dissected and surrounded with vessel loops. In order to provide adequate exposure of the proximal tibial vessels, the anterior tibial vein was ligated with 2-0 silk suture and divided. The patient received 5000 units of heparin intravenously. Additional heparin was given throughout the case to maintain adequate anticoagulation. Tension was applied to the femoral vessel loops. An arteriotomy was made in the common femoral artery and the reversed saphenous vein was cut to fit the arteriotomy. The saphenous vein was anastamosed with a running 6-0 Prolene. After completing anastomosis the graft was clamped with an atraumatic clamp and flow was restored to the femoral vessels. Thrombin and Gelfoam used to aid in hemostasis. The saphenous vein was then tunneled to the below-knee incision. The popliteal and proximal tibial arteries were occluded and a longitudinal arteriotomy was made in the popliteal artery. The arteriotomy was extended into the tibial peroneal trunk. At this time occlusive well organized thrombus was identified within the popliteal artery extending into the tibial vessels. Using a #4 Christiano embolectomy catheter a tibial vessel and popliteal artery thrombectomy was performed. Retrograde perfusion via the anterior tibial and tibial peroneal trunk was then noted. The lumens were flushed with heparinized saline. The distal end of the reverse saphenous vein was sutured in place with a running 6-0 Prolene to the arteriotomy. Prior to closure heparinized saline was infused into the lumen. The anastomosis was completed and flow was restored through the graft into the tibial vessels. Polyphasic signals were noted distal to the distal anastomosis as well as at the posterior tibial artery. Wounds were irrigated with antibiotic-containing saline. Thrombin and gelfoam were used to aid in hemostasis. Platelet rich and platelet poor plasma were infused into the wounds. Meticulous hemostasis was obtained throughout the wound with electrocautery. Wounds were reapproximated with layers of 2-0 and 3-0 Vicryl. Skin was reapproximated with 3-0 Monocryl. Sterile dressing was applied. The patient was extubated and taken to recovery room in stable condition.
--- NOTE | 2018-09-28 14:43 | Anesthesia Evaluation Post Op ---
Date of Encounter: 09/28/18 Time of Encounter: 14:43 - Vital Signs Vital Signs: Last Vital Signs Temp 97.1 F L 09/28/18 14:20 Pulse 76 09/28/18 14:30 Resp 16 09/28/18 14:30 BP 102/59 09/28/18 14:30 Pulse Ox 98 09/28/18 14:30 - Lungs Lungs: Clear Ascult./Percussion - Airway Airway: Non-obstructed - Cardiovascular Regular Rate - Mental Status Mental Status: Alert & Oriented, Answers Appropriately - Pain Pain Scale: 3 - Nausea Vomiting Nausea Vomiting: Not Present - Hydration Hydration: NPO, Saleem catheter - Discharge PostOp Status: Transfer Patient to floor
[2018-09-28] MEDS ORDERED: traMADol 50 MG TABLET PO PRN (14:55)
[2018-09-28] MEDS ORDERED: Naloxone 0.4 MG/ML INJ IVP PRN (14:55)
[2018-09-28] MEDS ORDERED: 0.9 % Sodium Chloride 1,000 ML IVC SCH (14:55)
[2018-09-28] MEDS ORDERED: Acetaminophen 325 MG TABLET PO PRN ×2 (14:55)
[2018-09-28] MEDS ORDERED: LEUPROLIDE ACETATE 22.5 MG IM SCH (14:55)
[2018-09-28] MEDS ORDERED: *HR* HYDROcodone/Acet 5/325 mg TABLET PO PRN ×2 (14:55)
[2018-09-28] MEDS: *HR* Metoprolol 5 MG/5 ML VIAL IVP SCH (17:33)
[2018-09-28] MEDS ORDERED: Bicalutamide 50 MG TABLET PO SCH (21:00)
[2018-09-29 03:59] LABS: Basophils % 0.1 %; Hematocrit 38.9 % (37.5-50.1); Hemoglobin 12.6 g/dL (12.9-16.9); Immature Granulocytes % 0.4 % (0-4); Lymphocytes # 1.2 K/mcL (0.6-4.6); Lymphocytes % 8.3 %; Mean Corpuscular HGB Conc 32.4 g/dL (31.6-35.5); Mean Corpuscular Hemoglobin 31.2 pg (28.0-33.3); Mean Corpuscular Volume 96.3 fL (83.0-100.0); Mean Platelet Volume 10.2 fL (9.4-12.4); Monocytes # 0.9 K/mcL (0.0-1.3); Monocytes % 6.1 %; Neutrophils # 12.7 K/mcL (1.6-8.9); Platelet Count 178 K/mcL (140-400); Red Blood Count 4.04 M/mcL (4.19-5.50); Red Cell Distribution Width 13.7 % (11.5-14.5); Segmented Neutrophils % 85.1 %; White Blood Count 14.9 K/mcL (4.3-11.1)
[2018-09-29 04:19] LABS: BUN/Creatinine Ratio 11 (6-26); Blood Urea Nitrogen 11 mg/dL (8-23); Calcium 8.7 mg/dL (8.6-10.3); Carbon Dioxide 24 mEq/L (23-29); Chloride 105 mEq/L (98-107); Glucose 147 mg/dL (70-105); Osmolality,Calculated 290 (280-300); Potassium 4.5 mEq/L (3.5-5.1); Sodium 139 mEq/L (136-145); eGFR For African Americans > 60 (> 60); eGFR For Non-African Americans > 60 (> 60)
[2018-09-29] MEDS: *HR* Metoprolol 5 MG/5 ML VIAL IVP SCH ×2 (05:22→06:22)
[2018-09-29] MEDS ORDERED: *HR* Heparin 5,000 UNIT/ML VIAL SQ SCH ×2 (06:00)
--- NOTE | 2018-09-29 07:00 | Discharge Summary ---
Date of Encounter: 09/29/18 Time of Encounter: 08:15 - Discharge Diagnosis (1) Atherosclerosis of [place] arteries of extremities with intermittent claudication, bilateral legs Priority: Primary Status: Chronic Comments: The patient is postoperative day #1 after a right popliteal and tibial thrombectomy and right femoral to popliteal artery bypass graft. His foot is warm. He has polyphasic signals. His compartments are soft. He will be discharged today. (2) Mixed hyperlipidemia Priority: Secondary Status: Chronic (3) Tobacco abuse Priority: Secondary Status: Chronic (4) Chronic disease anemia Priority: Secondary Status: Chronic Comments: The patient has chronic anemia. He is hemodynamically stable without evidence of ongoing blood loss. - Hospital Course Hospital course: Mr. Ryder is a 63 year old male with history of peripheral vascular disease with disabling claudication, prostate cancer, tobacco abuse and chronic disease anemia. The patient presented with disabling claudication. He is found have significant peripheral vascular disease. He underwent a right femoral to popliteal artery bypass and a right operative field tibial thrombectomy. He tolerated the procedure well. On postoperative day #1 he is hemodynamically stable. His foot was warm. He was neurovascularly intact. He was discharged on postoperative day #1 without complication. - Time Spent with Patient Total time spent providing and/or coordinating discharge services: - Discharge Medications Prescriptions: New HYDROcodone/Acet 5/325 mg [[place] 5-325 mg] 1 tab PO Q6HR PRN 7 Days #25 tablet PRN Reason: Postoperative pain Continued Aspirin Enteric Coated [Aspirin EC] 2 tab PO DAILY Tramadol HCl [Ultram] 50 mg PO QID PRN PRN Reason: Mild To Moderate Pain Leuprolide Acetate [Lupron Depot] 22.5 mg IM [id number] Atorvastatin [Lipitor] 80 mg PO HS Levothyroxine Sodium [Levoxyl] 75 mcg PO DAILY Tamsulosin HCl [Flomax] 0.4 mg PO HS #30 cap.er.24h Cyclobenzaprine [Flexeril] 10 mg PO DAILY Bicalutamide [Casodex] 50 mg PO HS Home Medications: Aspirin Enteric Coated [Aspirin EC] 2 tab PO DAILY 03/11/17 [History] Leuprolide Acetate [Lupron Depot] 22.5 mg IM [id number] 03/11/17 [History] Tramadol HCl [Ultram] 50 mg PO QID PRN 01/19/18 [History] Atorvastatin [Lipitor] 80 mg PO HS 09/23/17 [History] Levothyroxine Sodium [Levoxyl] 75 mcg PO DAILY 05/04/18 [History] Tamsulosin HCl [Flomax] 0.4 mg PO HS #30 cap.er.24h 07/03/18 [Rx] Bicalutamide [Casodex] 50 mg PO HS 09/28/18 [History] Cyclobenzaprine [Flexeril] 10 mg PO DAILY 09/28/18 [History] HYDROcodone/Acet 5/325 mg [[place] 5-325 mg] 1 tab PO Q6HR PRN 7 Days #25 tablet 09/29/18 [Rx] Allergies/Adverse Reactions: Allergy/AdvReac Type Severity Reaction Status Date / Time oxycodone AdvReac Shakiness Verified 09/28/18 06:29 Date of admission: 09/28/18 14:34 Primary care physician: June Brown MD Procedure(s) Performed: Right femoral to below-knee popliteal artery bypass graft, right popliteal tibial thrombectomy. Discharging clinician: Alonso Bowman Anticipated date of discharge: 09/29/18 Exam General: Present: Conversant, No Apparent Distress HEENT: Present: Atraumatic Cardiac: Present: Reg Rate and Rhythm Lungs: Present: Normal Breath Sounds Neuro: Present: Alert and responsive, No focal deficits noted Abdomen: Present: Soft, Non-tender Vascular: Present: Normal capillary refill, Pulse, normal (Right dorsalis pedis pulse palpable), Surgical incisions (Clean, dry and intact without erythema or drainage, no hematoma). Absent: Cyanosis, Edema Skin: Present: No rashes noted on visualized skin - Patient Status Disposition: Home, Self-Care Condition: Good Functional capacity at discharge: independent ambulation Overall status at discharge: patient is back to baseline - Discharge Instructions Instructions: Hypothyroidism (DC), Anemia (GEN) Follow Up With: Alonso Bowman MD [Partnered Physician] - 10/24/18 3:10 pm June Brown MD [Primary Care Provider] - 10/09/18 9:40 am Additional Instructions: May remove bandage and shower on 09/30/2018. Wash wound gently and pat to dry. Applied dry gauze to wounds daily for 7 days. No tub baths or swimming until 10/31/2018. No driving for [address] Bowman at [phone] with questions or concerns. - Diet and Activity Activity: increase activity as tolerated Diet: advance to your usual diet
[2018-09-29 07:24] VITALS: BP 113/88
[2018-09-29] MEDS ORDERED: Aspirin Enteric Coated 81 MG Tablet PO SCH (09:00)
== END 2018-09-29 10:37 | disposition home or self-care (01) | DRG 254 ==
LOC: SAMDAY 06:07 → 2NNU 14:34
PROVIDERS: ADMIT Surgery; ATTEND Surgery